=== PATIENT | female | born 1975 | race Caucasian/White ===

== ENCOUNTER 2019-12-29 14:53 | Emergency (ER) | payer BC ==
--- NOTE | 2019-12-29 15:23 | EDM.PDOC ---
ED HPI GENERAL MEDICAL PROBLEM - General Chief Complaint: Laceration Stated Complaint: RT FOOT PUNCTURE Time Seen by Provider: 12/29/19 15:14 Source of Information: Reports: Patient, RN Notes Reviewed History Limitations: Reports: No Limitations - History of Present Illness INITIAL COMMENTS - FREE TEXT/NARRATIVE: Full 44-year-old female presents emergency department today following a puncture wound on her right foot unfortunately she stepped on something in the bottom of the espitia just prior to presentation she has no functional complaints bleeding is controlled Right Feet Pain Score (Numeric/FACES): 7 - Related Data Allergies Allergy/AdvReac Type Severity Reaction Status Date / Time No Known Allergies Allergy Verified 12/29/19 15:05 Home Meds: Home Meds NK [No Known Home Meds] 12/29/19 [History] Past Medical History Genitourinary History: Reports: None BRANCHER History: Reports: Polycystic Ovaries - Past Surgical History Head Surgeries/Procedures: Reports: None Female Surgical History: Reports: Section Dermatological Surgical History: Reports: None Social & Family History - Tobacco Use Smoking Status *Q: Never Smoker Second Hand Smoke Exposure: No - Caffeine Use Caffeine Use: Reports: None - Recreational Drug Use Recreational Drug Use: No ED ROS GENERAL - Review of Systems Review Of Systems: See Below Constitutional: Reports: No Symptoms Skin: Reports: Wound ED EXAM, SKIN/RASH Exam: See Below Text/Narrative:: Examination the right foot pedal pulses +2 and on appreciate any erythema there is no edema noted there is a small puncture wound in the center of the foot no active bleeding Exam Limited By: No Limitations General Appearance: Alert, WD/WN, No Apparent Distress Course - Vital Signs Last Recorded V/S: Last Vital Signs Temp 98.3 F 12/29/19 15:09 Pulse 85 12/29/19 15:09 Resp 16 12/29/19 15:09 BP 105/78 12/29/19 15:09 Pulse Ox 98 12/29/19 15:09 Departure - Departure Time of Disposition: 15:22 Disposition: Home, Self-Care 01 Condition: Fair Clinical Impression: Puncture wound of right foot Qualifiers: Encounter type: initial encounter Qualified Code(s): S91.331A - Puncture wound without foreign body, right foot, initial encounter - Discharge Information Instructions: Puncture Wound, [id number] Referrals: PCP,None [Primary Care Provider] - Additional Instructions: Take full course of antibiotics, follow wound care instruction sheet please follow-up with your primary care upon return home if not improving call or return to the emergency department worsening of symptoms, Sepsis Event Note (ED) - Evaluation Sepsis Screening Result: No Definite Risk - Focused Exam Vital Signs: Vital Signs Temp Pulse Resp BP Pulse Ox 12/29/19 15:09 98.3 F 85 16 105/78 98 12/29/19 15:05 98.3 F 85 16 105/78 98 - Assessment/Plan Plan: Assessment Acuity = acute Site and laterality = puncture wound right foot Etiology = unknown Manifestations = none Location of injury = Home Lab values = none Plan Placed on antibiotics Augmentin tetanus is up-to-date 1 tablet p.o. twice daily x10 days follow-up primary care upon return home This note was dictated using [employer] voice recognition software please call with any questions on syntax or grammar.
== END 2019-12-29 15:30 | disposition home or self-care (01) ==
LOC: JP.ED 14:53
DX: S91.331A Puncture wound without foreign body, right foot, initial encounter (principal); W26.9XXA Contact with unspecified sharp object(s), initial encounter; Y92.828 Other wilderness area as the place of occurrence of the external cause
CPT/HCPCS: 99283